=== PATIENT | female | born 2000 | race Caucasian/White ===

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

== ENCOUNTER 2019-04-08 08:00 | Outpatient (CLI) | payer OTHER ==
[2019-04-09 20:41] LABS: CANDIDA GROUP DNA NEGATIVE (NEGATIVE); CANDIDA KRUSEI DNA NEGATIVE (NEGATIVE); TRICHOMONAS VAGINALIS DNA NEGATIVE (NEGATIVE)
== END 2019-04-08 23:59 | disposition home or self-care (01) ==
LOC: LAB.R 08:00
PROVIDERS: ATTEND Obstetrics & Gynecology
DX: N89.8 Other specified noninflammatory disorders of vagina (principal)
CPT/HCPCS: 87661; 87801

== ENCOUNTER 2019-07-26 08:00 | Outpatient (CLI) | payer OTHER | END 2019-07-26 23:59 | disposition home or self-care (01) | LOC: LAB.WCP 08:00 | PROVIDERS: ATTEND Family Medicine | DX: Z00.00 Encounter for general adult medical examination without abnormal findings (principal) | CPT/HCPCS: 81599 ==

== ENCOUNTER 2019-07-31 09:13 | Day surgery (SDC) | payer OTHER ==
[~2019-07-31 09:13] MED LIST: ACETAMINOPHEN 1,000 MG/100 ML 100 ML IV ONE; CEFAZOLIN SODIUM IN 0.9 % NACL 2 GM/100 ML BAG IV ONE; CELECOXIB 100 MG CAPSULE PO ONE; GABAPENTIN 400 MG CAPSULE ONE; LACTATED RINGERS 1,000 ML IV ONE; LIDOCAINE 1%-EPI 1:100000 20 ML MDV ONE
[2019-07-31] MEDS ORDERED: DEXAMETHASONE 4 MG/ML VIAL IVP ONE (09:14)
[2019-07-31] MEDS ORDERED: PROPOFOL 200 MG/20 ML VIAL IVP ONE (09:14)
[2019-07-31] MEDS ORDERED: MIDAZOLAM 2 MG/2 ML VIAL IVP ONE (09:14)
[2019-07-31] MEDS ORDERED: KETOROLAC 30 MG/ML VIAL IVP ONE (09:14)
[2019-07-31] MEDS ORDERED: ONDANSETRON 4 MG/2 ML VIAL IVP ONE (09:14)
[2019-07-31] MEDS ORDERED: fentaNYL 100 MCG/2 ML VIAL IVP ONE (09:14)
[2019-07-31] MEDS ORDERED: CELECOXIB 100 MG CAPSULE PO ONE (09:19)
[2019-07-31 09:22] LABS: HCG UR QUAL NEGATIVE
--- NOTE | 2019-07-31 09:35 | ANESTHESIA ---
Pre-Anesthesia VS, & Labs - Diagnosis bartholin cyst - Procedure bartholin cyst excision Vital Signs: Temp Pulse Resp BP Pulse Ox 36.5 C 84 20 123/76 100 07/31/19 09:12 07/31/19 09:12 07/31/19 09:12 07/31/19 09:12 07/31/19 09:12 Height 5 ft 6 in Weight (kg) 65.3 kg - NPO >8 hours - Is Patient ?: No - Lab Results Current Lab Results: Laboratory Tests 07/31/19 09:26: POC Whole Bld Glucose 92 Home Medications and Allergies Home Medications: Ambulatory Orders Levonorgestrel 20 Mcg/24H [Mirena] 1 each IY ONCE 07/30/19 Sumatriptan Succinate [Imitrex] 100 mg PO ONCE PRN 07/30/19 Levonorgestrel 20 Mcg/24H [Mirena] 1 each IY ONCE 07/30/19 Sumatriptan Succinate [Imitrex] 100 mg PO ONCE PRN 07/30/19 Allergies/Adverse Reactions: Allergies Allergy/AdvReac Type Severity Reaction Status Date / Time No Known Drug Allergies Allergy Verified 11/20/13 22:09 Anes History & Medical History - Anesthetic History Anesthesia Complications: reports: No previous complications Family history of Anesthesia Complications: Denies Family history of Malignant Hyperthermia: Denies - Medical History Cardiovascular: reports: None Pulmonary: reports: None, Other (vapes everyday) Gastrointestinal: reports: None Urinary: reports: None Neuro: reports: None Musculoskeletal: reports: None, Other Endocrine/Autoimmune: reports: None Blood Disorders: reports: None Skin: reports: None Smoking Status: Current every day smoker (vapes everyday) Psychosocial: reports: Depression, Anxiety Exam General: Alert, Oriented x3, Cooperative, No acute distress Mouth Openin Fingerbreadth Neck Mobility: Normal Mallampati classification: I Thyromental Distance: 4-6 cm Respiratory: Lungs clear, Normal breath sounds, No respiratory distress, No accessory muscle use Cardiovascular: Regular rate, Normal S1, Normal S2, No murmurs Abdomen: Normal bowel sounds, Soft, No tenderness, No hepatospenomegaly, No masses Extremities: No clubbing, No cyanosis, No edema, Normal pulses, No tenderness/swelling Neurological: Normal gait, Normal speech, Strength at 5/5 X4 ext, Normal tone, Sensation intact, Cranial nerves 3-12 NL, Reflexes 2+ Mental/Cognitive Status: Alert/Oriented X3, Normal for patient Cognitive Status: Within normal limits Plan Anesthesia Type: General Consent for Procedure(s) Verified and Reviewed: Yes Code Status: Attempt Resuscitation ASA classification: 2-Mild systemic disease Is this case an emergency?: No
[2019-07-31 09:40] LABS: BASOPHILS % (AUTO) 0.9 %; EOSINOPHILS # (AUTO) 0.2 10^3/uL (0.0-0.7); EOSINOPHILS % (AUTO) 3.7 %; HGB - HEMOGLOBIN 13.5 g/dL (12.0-16.0); LYMPHOCYTES # (AUTO) 1.8 10^3/uL (1.5-3.5); LYMPHOCYTES % (AUTO) 39.7 %; MEAN CORPUSCULAR HEMOGLOBIN 28.5 pg (27.0-31.0); MEAN CORPUSCULAR HGB CONC 33.4 g/dL (32.0-36.0); MEAN CORPUSCULAR VOLUME 85.2 fL (81.0-99.0); MEAN PLATELET VOLUME 10.7 fL (7.9-10.8); MONOCYTES # (AUTO) 0.3 10^3/uL (0.0-1.0); MONOCYTES % (AUTO) 5.8 %; NEUTROPHILS # (AUTO) 2.3 10^3/uL (1.5-6.6); NEUTROPHILS % (AUTO) 49.5 %; PLT - PLATELET COUNT 281 10^3/uL (130-450); RED BLOOD COUNT 4.74 10^6/uL (4.20-5.40); RED CELL DISTRIBUTION WIDTH 12.3 % (12.0-15.0); WHITE BLOOD COUNT 4.6 x10^3/uL (4.8-10.8)
[2019-07-31] MEDS ORDERED: LIDOCAINE 1%-EPI 1:100000 20 ML MDV SUBQ ONE ×2 (10:10)
--- NOTE | 2019-07-31 12:05 | OPERATIVE REPORT ---
Operative Report - General Planned Procedure: Bartholin's gland cyst excision and marsupialization Pre-Op Diagnosis: Recurrent Bartholins Gland cyst Procedure Performed: Bartholin's gland cyst excision and marsupialization Post Op Diagnosis: Same - Procedure Note Primary Surgeon: Katty Hou MD Anesthesia Provider: Curtis Lincoln CRNA Anesthesia Technique: MAC Pathology: Cyst wall IV Fluids (mL): 1,000 Estimated Blood Loss (mL): 10 Drain/Tube Type: Other (word catheter) Indications: Patient is a 18 yo G0 with recurrent Bartholins Gland cysts s/p clinci based drainage and marsupialization x2. The depth of soledad cyst is quite significant and difficult to access in the clinic setting with anesthesia limited to local anesthetic. While each marsupialization relieved the cyst to some extend, she has had a recurrent limited to about 3-4 cm in length, deep the the left labia. She is requesting attempt at drainage and marsupialization under anesthesia. Findings: Left labia with 3-4 cm and deep within the labia. When drained, moderate amount of chocolate cyst like fluid drained. The depth of the cyst was a minimum of 4 cm. Otherwise normal external female genitalia. Complications: None - Other Other Information/Narrative: Reviewed risks/benefits/alternatives at length, pt w/o questions, informed consent was again confirmed prior to the procedure. Patient was brought to the operating room and underwent MAC anesthesia.She received cefazolin 2 g IV for antibiotic prophylaxis.She was position in dorsal litholoomy position and prepared and draped in the usual, sterile manner. The site was anesthetized with 5 mL of 2 % lidocaine with epinephrine. A 1 cm incision was over the cyst using a scalpel. The skin was dissected off the cyst wall in a combination of blunt and sharp dissection. The cyst wall was stabilized with hemostats and the cyst was entered sharply with scalpel. A moderate amount of chocolate colored fluid was released from the cyst and cleared form the operative field with suction. The operative field was then irrigated with sterile saline. The depth of the cyst was noted to be greater than 4 cm. The cyst/abscess was explored thoroughly and sequestered pockets were opened. The outermost edges of the cyst were dissected away from the edges of the underlying labial tissue, exposing about 2 cm of the cyst wall. The upper half of the cyst was excised until the thickened edges of the glandular tissue remained. The edges of the cyst wall/gland were fixed to the surrounding labial tissue in a series of figure of 8 sutures using 3-0 Vicryl, taking care to close any spaces between glandular cyst tissue and the surrounding labial tissue. A running whip stitch was used to imbricate the cyst edges within the labial epithelium, creating a smooth edged orifice. This reduced the overall depth of the cystic structure as well as created and new orifice for drainage. The orifice and residual cyst bed were irrigated with sterile saline. A Word catheter was placed within the residual cyst bed and instilled with 3 cc of sterile saline in order to maintain the patency of the newly constructed cyst orifice during the re-epitheliazation process. No additional packing was indicated. Good hemostasis was noted. The patient tolerated the procedure well without complications. She was awakened from her anesthesia and brought to the PACU for recovery.
[2019-07-31 12:29] VITALS: BP 105/63
== END 2019-07-31 09:14 | disposition home or self-care (01) ==
LOC: SDS 09:13
PROVIDERS: ATTEND Obstetrics & Gynecology
PROC: 0UBL0ZZ Excision of Vestibular Gland, Open Approach (ICD-10-PCS; principal; 2019-07-31 10:00)
DX: N75.0 Cyst of Bartholin's gland (principal)
CPT/HCPCS: 56740; 81025; 85025; A9270; J0131; J0690; J7120

== ENCOUNTER 2019-08-22 14:45 | Outpatient (CLI) | payer OTHER ==
[2019-08-22 20:21] LABS: CANDIDA GROUP DNA POSITIVE (NEGATIVE); CANDIDA KRUSEI DNA NEGATIVE (NEGATIVE); TRICHOMONAS VAGINALIS DNA NEGATIVE (NEGATIVE)
== END 2019-08-22 23:59 | disposition home or self-care (01) ==
LOC: LAB.R 14:45
PROVIDERS: ATTEND Obstetrics & Gynecology
DX: N89.8 Other specified noninflammatory disorders of vagina (principal)
CPT/HCPCS: 87661; 87801

== ENCOUNTER 2019-10-01 08:00 | Outpatient (CLI) | payer OTHER | END 2019-10-01 23:59 | disposition home or self-care (01) | LOC: LAB.R 08:00 | PROVIDERS: ATTEND Physician Assistant | DX: R05 Cough (principal) | CPT/HCPCS: 87070 ==

== ENCOUNTER 2019-10-01 08:00 | Outpatient (CLI) | payer OTHER | END 2019-10-01 23:59 | disposition home or self-care (01) | LOC: LAB.R 08:00 | PROVIDERS: ATTEND Physician Assistant | DX: J06.9 Acute upper respiratory infection, unspecified (principal); Z20.828 Contact with and (suspected) exposure to other viral communicable diseases ==

== ENCOUNTER 2019-10-09 12:00 | Outpatient (CLI) | payer OTHER ==
[2019-10-09 19:58] LABS: BILIRUBIN,URINE NEGATIVE (NEGATIVE); GLUCOSE, URINE (UA) NEGATIVE (NEGATIVE); KETONES,URINE (UA) NEGATIVE (NEGATIVE); LEUKOCYTE ESTERASE, URINE MODERATE (NEGATIVE); NITRITE,URINE NEGATIVE (NEGATIVE); OCCULT BLOOD,URINE NEGATIVE (NEGATIVE); PROTEIN,URINE NEGATIVE (NEGATIVE); UROBILINOGEN,URINE 0.2 (NORMAL) E.U./dL (NORMAL)
[2019-10-09 20:17] LABS: BACTERIA,URINE Few /HPF (None Seen); CLARITY,URINE CLEAR (CLEAR); RBC,URINE None Seen /HPF (0-5); SQUAMOUS EPITHELIAL CELL,UR MANY Squamous (<= Few)
== END 2019-10-09 23:59 | disposition home or self-care (01) ==
LOC: LAB.R 12:00
PROVIDERS: ATTEND Physician Assistant
DX: R30.0 Dysuria (principal)
CPT/HCPCS: 81001; 87086

== ENCOUNTER 2019-11-06 08:00 | Outpatient (CLI) | payer OTHER ==
[2019-11-06 18:05] LABS: BILIRUBIN,URINE NEGATIVE (NEGATIVE); GLUCOSE, URINE (UA) NEGATIVE (NEGATIVE); KETONES,URINE (UA) NEGATIVE (NEGATIVE); LEUKOCYTE ESTERASE, URINE SMALL (NEGATIVE); NITRITE,URINE NEGATIVE (NEGATIVE); OCCULT BLOOD,URINE NEGATIVE (NEGATIVE); PROTEIN,URINE NEGATIVE (NEGATIVE); UROBILINOGEN,URINE 0.2 (NORMAL) E.U./dL (NORMAL)
[2019-11-06 18:28] LABS: BACTERIA,URINE None Seen /HPF (None Seen); CLARITY,URINE CLEAR (CLEAR); RBC,URINE None Seen /HPF (0-5); SQUAMOUS EPITHELIAL CELL,UR NONE SEEN (<= Few)
== END 2019-11-06 23:59 | disposition home or self-care (01) ==
LOC: LAB.R 08:00
PROVIDERS: ATTEND Physician Assistant
DX: R30.0 Dysuria (principal)
CPT/HCPCS: 81001; 87077; 87086

== ENCOUNTER 2019-12-08 16:45 | Emergency (ER) | payer OTHER ==
[2019-12-08] MEDS ORDERED: SULFAMETH/TRIMETH DS 800/160 MG TABLET PO STA (17:06)
[2019-12-08] MEDS ORDERED: cephALEXin 250 MG CAPSULE PO STA (17:06)
--- NOTE | 2019-12-08 17:08 | ED Physician Documentation ---
History of Present Illness - Stated complaint Stated Complaint: SPIDER BITE - Chief complaint Chief Complaint: Wound - History obtained from History obtained from: Patient - History of Present Illness Timing: How many days ago (2) Pain level max: 3 Pain level now: 2 - Additonal information Additional information: 19-year-old female presents to the emergency department with swelling and redness to the left mandible. Nothing makes it better or worse. No injury, no dental pain. Review of Systems Constitutional: denies: Fever, Chills GI: denies: Vomiting Skin: denies: Rash Musculoskeletal: denies: Neck pain, Back pain Neurologic: denies: Headache PD PAST MEDICAL HISTORY - Past Medical History Past Medical History: Yes Respiratory: None, Other Neuro: None Musculoskeletal: None, Other - Past Surgical History Past Surgical History: No - Present Medications Home Medications: Ambulatory Orders Medication Instructions Recorded Confirmed Levonorgestrel 20 Mcg/24H [Mirena] 1 each IY ONCE 07/30/19 07/30/19 Sumatriptan Succinate [Imitrex] 100 mg PO ONCE PRN 07/30/19 07/30/19 Cephalexin [Keflex] 500 mg PO Q6H #28 capsule 12/08/19 Sulfamethox/Trimeth 800/160 1 each PO BID #14 tablet 12/08/19 [Bactrim Ds 800/160] - Allergies Allergies/Adverse Reactions: Allergies Allergy/AdvReac Type Severity Reaction Status Date / Time No Known Drug Allergies Allergy Verified 12/08/19 16:48 - Social History Does the pt smoke?: No Smoking Status: Never smoker Does the pt drink ETOH?: No Does the pt have substance abuse?: No - Immunizations Immunizations are current?: Yes - POLST Patient has POLST: No PD ED PE NORMAL - Vitals Vital signs reviewed: Yes - General General: Alert and oriented X 3, No acute distress - HEENT HEENT: Moist mucous membranes, Pharynx benign, Dentition benign, Other (mild swelling and erythema to the L mandible. 1cm. no fluctuance. no drainage. ) - Neck Neck: Supple, no meningeal sign - Derm Derm: Warm and dry - Neuro Neuro: Alert and oriented X 3 - Psych Psych: Normal mood, Normal affect Results - Vitals Vitals: Vital Signs - 24 hr 12/08/19 12/08/19 16:48 16:55 Temperature 36.5 C 36.5 C Heart Rate 88 88 Respiratory 16 16 Rate Blood Pressure 108/68 108/68 O2 Saturation 98 98 Oxygen O2 Source Room air PD MEDICAL DECISION MAKING - ED course Complexity details: considered differential, d/w patient ED course: 19-year-old female presents the emergency department with a mild cellulitis to the left face. No drainable abscess. Will place on antibiotics. She is not , breast-feeding or trying to become . Nothing makes it better or worse. Patient counseled regarding signs and symptoms for which I believe and urgent re-evaluation would be necessary. Patient with good understanding of and agreement to plan and is comfortable going home at this time This document was made in part using voice recognition software. While efforts are made to proofread this document, sound alike and grammatical errors may occur. Departure - Departure Disposition: 01 Home, Self Care Clinical Impression: Cellulitis Qualifiers: Site of cellulitis: face Qualified Code(s): L03.211 - Cellulitis of face Condition: Good Instructions: ED Cellulitis Facial Follow-Up: Anel Ignacio PA [Primary Care Provider] - Within 3 Days Prescriptions: Sulfamethox/Trimeth 800/160 [Bactrim Ds 800/160] 1 each PO BID #14 tablet Cephalexin [Keflex] 500 mg PO Q6H #28 capsule Comments: Take all antibiotics until gone. Return if you worsen. You can apply warm compresses 3 times a day to help as well.
[2019-12-08 17:14] VITALS: BP 110/62
== END 2019-12-08 17:13 | disposition home or self-care (01) ==
LOC: ED 16:45
DX: L03.211 Cellulitis of face (principal)
CPT/HCPCS: 99282; 99284; A9270

== ENCOUNTER 2019-12-13 10:15 | Emergency (ER) | payer OTHER ==
--- NOTE | 2019-12-13 11:37 | ED Physician Documentation ---
PD HPI SKIN - Stated complaint Stated Complaint: ALLERGIC REACTION - DIFFICULTY BREATHING - Chief complaint Chief Complaint: Allergic Rx - History obtained from History obtained from: Patient - History of Present Illness Timing - onset: How many hours ago (3 02/28), Today Timing - duration: Hours Timing - details: Abrupt onset, Still present, Waxing and waning Location: Scalp, Face, Bodywide Quality / character: Itchy, Raised, Swelling. No: Vesicular Improved by: No: Benadryl Associated symptoms: No: Fever, Myalgias, Headache, N/V/D Contributing factors: Exposed to medication (took oral antibiotic dose 2 days ago for skin infection, but she got nauseated from med and the lesion improved so has not taken it beyond a single day. No med for 2 days.), Insect bite /sting (has had flea bites on legs and arms the past week from cats/pets at her boyfriends house.) Similar symptoms before: Has not had sx before Review of Systems Constitutional: denies: Fever, Chills Nose: denies: Rhinorrhea / runny nose, Congestion Throat: denies: Sore throat Respiratory: denies: Cough GI: denies: Nausea, Vomiting, Diarrhea Neurologic: denies: Near syncope, Altered mental status, Headache PD PAST MEDICAL HISTORY - Past Medical History Respiratory: None, Other Neuro: None Musculoskeletal: None, Other - Past Surgical History Past Surgical History: No - Present Medications Home Medications: Ambulatory Orders Medication Instructions Recorded Confirmed Levonorgestrel 20 Mcg/24H [Mirena] 1 each IY ONCE 07/30/19 07/30/19 Sumatriptan Succinate [Imitrex] 100 mg PO ONCE PRN 07/30/19 07/30/19 Cephalexin [Keflex] 500 mg PO Q6H #28 capsule 12/08/19 Sulfamethox/Trimeth 800/160 1 each PO BID #14 tablet 12/08/19 [Bactrim Ds 800/160] Cetirizine [ZyrTEC] 10 mg PO DAILY #15 tablet 12/13/19 Famotidine 20 mg PO DAILY #30 tablet 12/13/19 dexAMETHasone [Decadron] 4 mg PO DAILY #7 tablet 12/13/19 - Allergies Allergies/Adverse Reactions: Allergies Allergy/AdvReac Type Severity Reaction Status Date / Time No Known Drug Allergies Allergy Verified 12/08/19 16:48 - Social History Does the pt smoke?: No Smoking Status: Never smoker Does the pt drink ETOH?: No Does the pt have substance abuse?: No - Immunizations Immunizations are current?: Yes - POLST Patient has POLST: No PD ED PE NORMAL - Vitals Vital signs reviewed: Yes - General General: Alert and oriented X 3, No acute distress, Well developed/nourished - HEENT HEENT: Moist mucous membranes, Pharynx benign (no oral swelling. ) - Neck Neck: Supple, no meningeal sign, No adenopathy - Cardiac Cardiac: RRR, No murmur - Respiratory Respiratory: Clear bilaterally - Derm Derm: Normal color, Warm and dry, Other (hives without vesicles on bodywide. Several discrete raised red spots on lower legs and arms c/w bug bites. left face with resolved pimple type lesion without redness nor purulence.) - Neuro Neuro: Alert and oriented X 3, No motor deficit, Normal speech Results - Vitals Vitals: Vital Signs - 24 hr 12/13/19 12/13/19 12/13/19 10:20 12:11 12:30 Temperature 36.9 C 37.2 C Heart Rate 92 76 80 Respiratory 18 17 16 Rate Blood Pressure 122/63 94/73 94/73 O2 Saturation 98 97 96 12/13/19 12:55 Temperature 37.1 C Heart Rate 73 Respiratory 18 Rate Blood Pressure 114/56 L O2 Saturation 100 Oxygen O2 Source Room air PD MEDICAL DECISION MAKING - ED course Complexity details: considered differential (has flea bites on legs (she is sure they are flea bites from cats at boyfriends house, and not scabies or such). Had abx 2 days ago for just one day and then stopped. Could be reacting to either. Not central symptoms, just skin. ), d/w patient Departure - Departure Disposition: 01 Home, Self Care Clinical Impression: Acute allergic reaction Qualifiers: Encounter type: initial encounter Qualified Code(s): T78.40XA - Allergy, unspecified, initial encounter Condition: Stable Record reviewed to determine appropriate education?: Yes Instructions: ED Allergic Reaction General Other Follow-Up: Anel Ignacio PA [Primary Care Provider] - Prescriptions: dexAMETHasone [Decadron] 4 mg PO DAILY #7 tablet Famotidine 20 mg PO DAILY #30 tablet Cetirizine [ZyrTEC] 10 mg PO DAILY #15 tablet Comments: Use the Famotidine and Cetirizine antihistamines daily for 1-2 weeks. Add Benadryl every 6 hours if needed for itching short term. Decadron steroid daily for a week. These should help with the reaction and hopefully the duration of treatment will keep it calmed. Recheck if not better over the next couple of days. Discharge Date/Time: 12/13/19 12:59
[2019-12-13] MEDS ORDERED: DEXAMETHASONE 10 MG/ML VIAL PO STA (12:13)
[2019-12-13] MEDS ORDERED: FAMOTIDINE 20 MG TABLET PO STA (12:13)
[2019-12-13] MEDS ORDERED: diphenhydrAMINE INJ 50 MG/ML VIAL IM STA (12:13)
[2019-12-13] MEDS ORDERED: CHERRY SYRUP 10 ML UDC PO ONE (12:13)
[2019-12-13] MEDS ORDERED: CETIRIZINE 10 MG TABLET PO STA (12:13)
[2019-12-13 12:55] VITALS: BP 114/56
== END 2019-12-13 12:59 | disposition home or self-care (01) ==
LOC: ED 10:15
DX: T78.40XA Allergy, unspecified, initial encounter (principal)
CPT/HCPCS: 99283; 99284; A9270; J1200

== ENCOUNTER 2020-01-22 08:00 | Outpatient (CLI) | payer OTHER | END 2020-01-22 23:59 | disposition home or self-care (01) | LOC: LAB.R 08:00 | PROVIDERS: ATTEND Nurse Practitioner Obstetrics & Gynecology | DX: M54.89 Other dorsalgia (principal) | CPT/HCPCS: 87077; 87086 ==

== ENCOUNTER 2020-02-03 10:28 | Emergency (ER) | payer OTHER ==
[2020-02-03 10:34] VITALS: BP 124/69
--- NOTE | 2020-02-03 11:21 | ED Physician Documentation ---
History of Present Illness - Stated complaint Stated Complaint: NECK SWELLING - Chief complaint Chief Complaint: Heent - History obtained from History obtained from: Patient - History of Present Illness Timing: How many weeks ago (2) Pain level max: 2 Pain level now: 2 - Additonal information Additional information: Patient is a 19-year-old female who presents to the emergency department submental swelling, She states this is been ongoing for the past 2 weeks. She states she was recently treated with Macrobid for UTI. She states that nothing makes it better. worse with palpation Review of Systems Constitutional: denies: Fever, Chills Throat: denies: Sore throat GI: denies: Vomiting, Diarrhea Skin: denies: Rash Musculoskeletal: denies: Neck pain, Back pain Neurologic: denies: Headache PD PAST MEDICAL HISTORY - Past Medical History Past Medical History: Yes Respiratory: None, Other Neuro: None Musculoskeletal: None, Other - Past Surgical History Past Surgical History: No - Present Medications Home Medications: Ambulatory Orders Medication Instructions Recorded Confirmed Levonorgestrel 20 Mcg/24H [Mirena] 1 each IY ONCE 07/30/19 07/30/19 Sumatriptan Succinate [Imitrex] 100 mg PO ONCE PRN 07/30/19 07/30/19 Cephalexin [Keflex] 500 mg PO Q6H #28 capsule 12/08/19 Sulfamethox/Trimeth 800/160 1 each PO BID #14 tablet 12/08/19 [Bactrim Ds 800/160] Cetirizine [ZyrTEC] 10 mg PO DAILY #15 tablet 12/13/19 Famotidine 20 mg PO DAILY #30 tablet 12/13/19 dexAMETHasone [Decadron] 4 mg PO DAILY #7 tablet 12/13/19 Amox/Clav 875/125 [Augmentin] 1 tab PO Q12H #20 tablet 02/03/20 Sulfamethox/Trimeth 800/160 1 each PO BID #14 tablet 02/03/20 [Bactrim Ds 800/160] - Allergies Allergies/Adverse Reactions: Allergies Allergy/AdvReac Type Severity Reaction Status Date / Time No Known Drug Allergies Allergy Verified 12/08/19 16:48 - Social History Does the pt smoke?: No Smoking Status: Never smoker Does the pt drink ETOH?: No Does the pt have substance abuse?: No - Immunizations Immunizations are current?: Yes - POLST Patient has POLST: No PD ED PE NORMAL - Vitals Vital signs reviewed: Yes - General General: Alert and oriented X 3, No acute distress - HEENT HEENT: Moist mucous membranes - Neck Neck: Supple, no meningeal sign, Other (1cm firm submandibular swelling. mobile. does not move with tongue movement. ) - Cardiac Cardiac: RRR - Respiratory Respiratory: No respiratory distress, Clear bilaterally - Derm Derm: Warm and dry - Neuro Neuro: Alert and oriented X 3 Results - Vitals Vitals: Vital Signs - 24 hr 02/03/20 10:32 Temperature 36.7 C Heart Rate 99 Respiratory 16 Rate Blood Pressure 124/69 O2 Saturation 100 Oxygen O2 Source Room air PD MEDICAL DECISION MAKING - ED course Complexity details: considered differential, d/w patient ED course: Patient with a small nodular mass under her tongue, mobile. Bedside US reveals a small hypoechoic area, possible early abscess vs lymph node. We will place her on antibiotics. Does not appear to be a bronchial cleft cyst. Patient counseled regarding signs and symptoms for which I believe and urgent re- evaluation would be necessary. Patient with good understanding of and agreement to plan and is comfortable going home at this time This document was made in part using voice recognition software. While efforts are made to proofread this document, sound alike and grammatical errors may occur. Departure - Departure Disposition: 01 Home, Self Care Clinical Impression: Lymphadenitis Condition: Good Instructions: ED Cervical Adenitis Abx Tx Follow-Up: Anel Ignacio PA [Primary Care Provider] - Within 1 week Prescriptions: Amox/Clav 875/125 [Augmentin] 1 tab PO Q12H #20 tablet Sulfamethox/Trimeth 800/160 [Bactrim Ds 800/160] 1 each PO BID #14 tablet Comments: Take all antibiotics until gone. Follow-up with your doctor for further care. If this is not resolved within 1 to 2 weeks, you should have an ultrasound with your doctor. As we discussed this is most likely a lymph node, but could be a small abscess starting. Discharge Date/Time: 02/03/20 11:31
== END 2020-02-03 11:31 | disposition home or self-care (01) ==
LOC: ED 10:28
DX: I88.9 Nonspecific lymphadenitis, unspecified (principal)
CPT/HCPCS: 99282; 99284

== ENCOUNTER 2020-07-15 15:27 | Outpatient (CLI) | payer OTHER ==
[2020-07-15 18:05] LABS: BASOPHILS % (AUTO) 0.8 %; EOSINOPHILS # (AUTO) 0.1 10^3/uL (0.0-0.7); EOSINOPHILS % (AUTO) 2.3 %; HCT - HEMATOCRIT 38.4 % (37.0-47.0); HGB - HEMOGLOBIN 12.8 g/dL (12.0-16.0); LYMPHOCYTES # (AUTO) 1.6 10^3/uL (1.5-3.5); LYMPHOCYTES % (AUTO) 30.6 %; MEAN CORPUSCULAR HEMOGLOBIN 28.6 pg (27.0-31.0); MEAN CORPUSCULAR HGB CONC 33.3 g/dL (32.0-36.0); MEAN CORPUSCULAR VOLUME 85.9 fL (81.0-99.0); MONOCYTES # (AUTO) 0.3 10^3/uL (0.0-1.0); MONOCYTES % (AUTO) 6.2 %; NEUTROPHILS # (AUTO) 3.2 10^3/uL (1.5-6.6); NEUTROPHILS % (AUTO) 59.9 %; PLT - PLATELET COUNT 279 10^3/uL (130-450); RED BLOOD COUNT 4.47 10^6/uL (4.20-5.40); RED CELL DISTRIBUTION WIDTH 12.3 % (12.0-15.0); WHITE BLOOD COUNT 5.3 x10^3/uL (4.8-10.8)
[2020-07-15 18:17] LABS: ALBUMIN 4.2 g/dL (3.2-5.5); ALBUMIN/GLOBULIN RATIO 1.4 (1.0-2.2); BILIRUBIN,TOTAL 0.8 mg/dL (0.2-1.0); CALCIUM 8.9 mg/dL (8.5-10.3); CREATININE 0.9 mg/dL (0.4-1.0); POTASSIUM 3.5 mmol/L (3.5-5.0); TOTAL PROTEIN 7.2 g/dL (6.7-8.2)
[2020-07-16 12:28] LABS: HEPATITIS C ANTIBODY NON-REACTIVE (NON-REACTIVE)
== END 2020-07-15 15:28 | disposition home or self-care (01) ==
LOC: LAB.N 15:27
PROVIDERS: ATTEND Orthopaedic Surgery
DX: Z01.812 Encounter for preprocedural laboratory examination (principal)
CPT/HCPCS: 36415; 80053; 85025; 86803

== ENCOUNTER 2020-08-25 19:43 | Outpatient (CLI) | payer OTHER ==
--- NOTE | 2020-08-25 21:50 | Ultrasound Report ---
PROCEDURE: OB First Trimester w/TV INDICATIONS: POSITIVE TEST, UNWANTED OUTSIDE/PRIOR DATING DATA: Last menstrual period (LMP): 06/29/2020. LMP-based estimated date of delivery (DAVE): 04/05/2021 2. First dating scan (date and location): Not available. Estimated date of delivery (DAVE) from first dating scan: Not available. TECHNIQUE: Real-time scanning was performed of the fetus and maternal pelvic organs, with image documentation. Endovaginal scanning was also performed to better visualize the fetus and maternal ovaries. COMPARISON: None. FINDINGS: There may be a small gestational sac measuring 5 weeks 0 day for gestational age. No pole is present. Measurement variability in dating: +/- 4 weeks by LMP, +/- 7 days by mean sac diameter (use before 6 weeks gestation if crown-rump length not able to be measured), +/- 5 days by crown-rump length (6-12 weeks gestation). Maternal organs: There is a 2.4 x 2.1 x 2.4 cm thick-walled cyst in the left ovary. The position, the re is a 2.2 x 2.1 x 2.6 cm simple cyst in the left ovary. A 7 x 6 x 9 mm echogenic focus in the right ovary. IMPRESSION: 1. Possible intrauterine gestational sac with the estimated gestational age 5 weeks 0 day. No p ole is visualized at this time. These correlate with quantitative serum beta hCG. 2. A 2.4 x 2.1 x 2.4 cm thick-walled cyst in the left ovary, most likely a corpus luteal cyst. Ectopi c , however, is not excluded. Recommend clinical correlation and follow-up imaging if clinic ally indicated. Reviewed by: Mindy Blake MD on 08/25/2020 9:49 PM PDT Approved by: Mindy Blake MD on 08/25/2020 9:49 PM PDT Station ID: [id number]
== END 2020-08-25 19:44 | disposition home or self-care (01) ==
LOC: DI 19:43
PROVIDERS: ATTEND Nurse Practitioner Obstetrics & Gynecology
DX: O28.3 Abnormal ultrasonic finding on antenatal screening of mother (principal); Z3A.01 Less than 8 weeks gestation of pregnancy

== ENCOUNTER 2020-08-26 14:32 | Outpatient (CLI) | payer OTHER | END 2020-08-26 14:33 | disposition home or self-care (01) | LOC: LAB 14:32 | PROVIDERS: ATTEND Advanced Practice Midwife | DX: Z32.01 Encounter for pregnancy test, result positive (principal) | CPT/HCPCS: 86900; 86901 ==

== ENCOUNTER 2020-09-01 13:35 | Outpatient (CLI) | payer OTHER | END 2020-09-01 13:36 | disposition home or self-care (01) | LOC: LAB.N 13:35 | PROVIDERS: ATTEND Advanced Practice Midwife | DX: Z32.01 Encounter for pregnancy test, result positive (principal) | CPT/HCPCS: 36415; 84702; 86900; 86901 ==

== ENCOUNTER 2020-09-11 08:54 | Outpatient (CLI) | payer OTHER | END 2020-09-11 08:55 | disposition home or self-care (01) | LOC: LAB.N 08:54 | PROVIDERS: ATTEND Advanced Practice Midwife | DX: Z32.01 Encounter for pregnancy test, result positive (principal) | CPT/HCPCS: 36415; 84702 ==

== ENCOUNTER 2020-11-06 08:00 | Outpatient (CLI) | payer OTHER | END 2020-11-06 23:59 | disposition home or self-care (01) | LOC: LAB 08:00 | PROVIDERS: ATTEND Physician Assistant Medical | DX: R30.0 Dysuria (principal) | CPT/HCPCS: 87086; 87181 ==

== ENCOUNTER 2021-07-30 08:00 | Outpatient (CLI) | payer OTHER ==
--- NOTE | 2021-07-30 15:02 | XRAY Report ---
PROCEDURE: Chest 2 View X-Ray INDICATIONS: BRONCHITIS TECHNIQUE: 2 view(s) of the chest. COMPARISON: None. FINDINGS: Surgical changes and devices: None. Lungs and pleura: No pleural effusions or pneumothorax. Lungs are clear. Mediastinum: Mediastinal contours are normal. Heart size is normal. Bones and chest wall: No suspicious bony abnormalities. Soft tissues appear unremarkable. IMPRESSION: No acute finding. Reviewed by: Kj Jones MD on 07/30/2021 3:01 PM PDT Approved by: Kj Jones MD on 07/30/2021 3:01 PM PDT Station ID: [id number]
== END 2021-07-30 23:59 | disposition home or self-care (01) ==
LOC: DI.N 08:00
PROVIDERS: ATTEND Physician Assistant Medical
DX: J40 Bronchitis, not specified as acute or chronic (principal)